=== PATIENT | female | born 1955 | race Caucasian/White ===

== ENCOUNTER 2021-01-11 20:00 | Outpatient (CLI) | payer MEDICARE, SELFPAY | END 2021-01-11 20:01 | disposition home or self-care (01) | LOC: SLEEP 01-12 08:27 | PROVIDERS: Family Provider Nurse Practitioner Family; Visit Provider Nurse Practitioner Family | DX: G47.10 Hypersomnia, unspecified (principal); R06.83 Snoring; R53.83 Other fatigue; G47.33 Obstructive sleep apnea (adult) (pediatric) | CPT/HCPCS: 95810 ==

== ENCOUNTER 2021-01-15 12:45 | Outpatient (CLI) | payer MEDICARE, SELFPAY ==
--- NOTE | 2021-01-15 13:01 | MM_ITS ---
WS: [id number] BILATERAL DIGITAL SCREENING MAMMOGRAPHY WITH CAD CLINICAL INFORMATION: SCREENING HISTORY: Screening mammogram. No current complaints. COMPARISON: None. TECHNIQUE: Bilateral CC and MLO views. FINDINGS: Scattered fibroglandular densities bilaterally. Dense breast tissue upper outer breasts bilaterally. No suspicious focal mass, asymmetry, calcifications, or architectural distortion. No evidence of heidi gnancy. MM/[place] [address] IMPRESSION: BI-RADS: 2-Benign FOLLOW UP: 1 Year Follow-up Recommend return to annual screening mammography.
== END 2021-01-15 12:46 | disposition home or self-care (01) ==
LOC: RADSHAW 12:48
PROVIDERS: Family Provider Nurse Practitioner Family; PCP Nurse Practitioner Family; Visit Provider Nurse Practitioner Family
DX: Z12.31 Encounter for screening mammogram for malignant neoplasm of breast (principal)
CPT/HCPCS: 77067

== ENCOUNTER → 2021-01-21 11:56 | Outpatient (BNVA) | payer MEDICARE, SELFPAY | PROVIDERS: Family Provider Nurse Practitioner Family; PCP Nurse Practitioner Family; Visit Provider Surgery | DX: Z12.11 Encounter for screening for malignant neoplasm of colon (principal); Z20.822 Contact with and (suspected) exposure to COVID-19 | CPT/HCPCS: 87635 ==

== ENCOUNTER 2021-01-25 06:30 | Day surgery (SDC) | payer MEDICARE, SELFPAY ==
[2021-01-21 10:18] VITALS: BMI 25.8
[2021-01-25 06:53] VITALS: BP 147/79; PULSE 72; RESP 16; TEMP 36.2; O2SAT 94
[2021-01-25] MEDS: sodium chloride 0.9% 1,000 ML 30 ML IV (06:58)
--- NOTE | 2021-01-25 07:07 | W.PM.OPSUD ---
Surgery/Procedure H&P Update DATE OF PROCEDURE: January 25, 2021 DATE H&P PERFORMED: 01/15/21 H&P UPDATE INFORMATION: I have reviewed H&P completed within last 30 days, I have examined patient prior to procedure and No changes to prior documentation PREOP DIAGNOSIS: screening colonoscopy PLANNED PROCEDURE: Operation Date: 01/25/21 07:30 Proposed Procedures p Colonoscopy 16041 Z12.11(Not Applicable) - Gaurav Danielson MD
--- NOTE | 2021-01-25 07:09 | ANES.PREANE2 ---
Pre-Anesthetic Assessment Pre-Anesthetic Assessment: Height/Weight: Height 1.68 m Weight 72.575 kg Temp Pulse Resp BP Pulse Ox 97.2 F L 72 16 147/79 94 01/25/21 06:53 01/25/21 06:53 01/25/21 06:53 01/25/21 06:53 01/25/21 06:53 Preop Diagnosis: screening colonoscopy Proposed Procedure: Operation Date: 01/25/21 07:30 Proposed Procedures p Colonoscopy 64279 Z12.11(Not Applicable) - Gaurav Danielson MD Last intake: Intake Last Liquid Date 01/24/21 Last Liquid Time 23:00 Last Solid Date 01/23/21 Last Solid Time 17:00 Social: Social History: Tobacco and No alcohol Packs per day: 1/2 Exam: Pre-Anes Outpt Exam: alert and oriented x 3 Airway: MP: 4 History/ROS: No significant history except as noted Pulmonary: Pulmonary: COPD and Sleep apnea CV/HEM: CV/HEM: None reported : : None reported Hepatic: Hepatic: None reported GI: GI: GERD and Hiatus hernia Metabolic: Metabolic: Hyperlipidemia Musc/skel: Musc/skel: OA/DJD and RA Neuropsych: Neuropsych: None reported Anesthetic Plan: ASA status: 2 Anesthesia: MAC Risk of > 500 ml blood loss (7ml/kg in children): No Meds/Allergies Current Medications: Current Medications Generic Name Dose Route Start Last Admin Trade Name Freq PRN Reason Stop Dose Admin Sodium Chloride 1,000 mls @ 30 ml s/hr 01/25/21 06:45 01/25/21 06:58 Sodium Chloride 0.9% IV 01/26/21 06:44 30 mls/hr .Q24H TAVARES Administration PFSH Anesthesia PFSH: Medical History (Updated 01/15/21 @ 18:05 by Gaurav Danielson MD) COPD (chronic obstructive pulmonary disease) Hiatal hernia Surgical History (Updated 01/15/21 @ 10:45 by Gaurav Danielson MD) History of cholecystectomy 1999 History of colonoscopy 1997 History of esophagogastroduodenoscopy (EGD) 1997 History of tonsillectomy Family History (Updated 01/15/21 @ 10:15 by Kim Faria) Mother Cancer CAD (coronary artery disease) Other Diabetes Social History (Updated 01/15/21 @ 10:15 by Kim Faria) Smoking and tobacco status: current every day smoker Second hand smoke exposure: No Alcohol intake: never Lives independently: Yes Household members: spouse Data Anesthesia Cardiac Studies: No Data to Display
[2021-01-25 08:05] VITALS: BP 132/68; PULSE 59; RESP 12; TEMP 36.1; O2SAT 99
== END 2021-01-25 08:30 | disposition home or self-care (01) ==
PROVIDERS: PCP Nurse Practitioner Family; Visit Provider Surgery
PROC: 0DJD8ZZ Inspection of Lower Intestinal Tract, Via Natural or Artificial Opening Endoscopic (ICD-10-PCS; CPT 45378; principal; 2021-01-25 07:30)
DX: Z12.11 Encounter for screening for malignant neoplasm of colon (principal); Z80.0 Family history of malignant neoplasm of digestive organs; K57.30 Diverticulosis of large intestine without perforation or abscess without bleeding; K64.8 Other hemorrhoids; J44.9 Chronic obstructive pulmonary disease, unspecified; F17.210 Nicotine dependence, cigarettes, uncomplicated; Z82.49 Family history of ischemic heart disease and other diseases of the circulatory system; E78.5 Hyperlipidemia, unspecified; M19.90 Unspecified osteoarthritis, unspecified site
CPT/HCPCS: 96360; 96361; G0121; J2704; J7030

== ENCOUNTER 2021-02-17 20:00 | Outpatient (CLI) | payer MEDICARE, SELFPAY | END 2021-02-17 20:01 | disposition home or self-care (01) | LOC: SLEEP 02-18 09:59 | PROVIDERS: PCP Nurse Practitioner Family; Visit Provider Nurse Practitioner Family | DX: G47.33 Obstructive sleep apnea (adult) (pediatric) (principal) | CPT/HCPCS: 95811 ==

== ENCOUNTER → 2022-01-18 15:00 | Outpatient (BNVA) | payer MEDICARE, SELFPAY | PROVIDERS: PCP Nurse Practitioner Family; Visit Provider Obstetrics & Gynecology | DX: N81.10 Cystocele, unspecified (principal); Z12.4 Encounter for screening for malignant neoplasm of cervix | CPT/HCPCS: 81000; 87624 ==

== ENCOUNTER 2022-02-18 12:44 | Outpatient (CLI) | payer MEDICARE, SELFPAY ==
--- NOTE | 2022-02-18 12:54 | CT_ITS ---
WS: [id number] LDCT LUNG CANCER SCREENING TECHNIQUE: Noncontrast CT of the chest with coronal and sagittal reformatted images. CLINICAL INFORMATION: NICOTINE DEPENDENCE,CIGARETTES COMPARISON: None. DLP: 76.62 mGy.cm DIvol: Mean CTDIvol: 1.60 (mGy) All CT scans at [facility] use at least one of these dose optimization techniques: automat ed exposure control; mA and/or kV adjustment per patient size (includes targeted exams where dose is matched to clinical indication); or iterative reconstruction. FINDINGS: Tiny 2 mm noncalcified nodule LEFT lower lobe. No acute pulmonary infiltrates. No focal pneumonia or pleural fluid. Mild aortic calcification. No mediastinal or hilar lymphadenopathy. Normal GE junction. Adrenal glands appear normal where visualized. Mild chronic emphysematous changes . CT/CT lung screening 34675 IMPRESSION: LUNG-RADS: 2-Benign Appearance or Behavior FOLLOW UP: 12 Month: Continue annual screening with LDCT
== END 2022-02-18 12:45 | disposition home or self-care (01) ==
LOC: RAD 12:46
PROVIDERS: PCP Nurse Practitioner Family; Visit Provider Nurse Practitioner Family
DX: Z12.2 Encounter for screening for malignant neoplasm of respiratory organs (principal); F17.210 Nicotine dependence, cigarettes, uncomplicated; R91.1 Solitary pulmonary nodule
CPT/HCPCS: 71271

== ENCOUNTER 2022-06-29 19:15 | Observation (INO) | payer MEDICARE, SELFPAY ==
[2022-06-27 11:46] LABS: Blood Urine 2+ (Negative); Glucose Urine UA Norm (Normal); Ketones Urine Negative (Negative); Protein Urine Neg (Negative); Urine Appearance Clear (CLEAR); Urine Color Straw (Yellow); pH Urine 6 (5-7)
[2022-06-27 11:47] LABS: Add Urine Culture? No; Add Urine Microscopic? YES; Bacteria Urine TRACE /hpf; Bilirubin Urine Neg (Negative); Leukocyte Esterase Urine Negative (Negative); Nitrate Urine Negative (Negative); RBC Urine 0-4 /hpf (0-2); Squamous Epithelial Cell Urine 0-4 /hpf (0-5); Urobilinogen Urine Norm (Negative); WBC Urine 0-4 /hpf (0-5)
[2022-06-27 11:49] VITALS: BMI 25.2
[2022-06-27 11:59] LABS: Basophils # 0.1 10^3/uL (0.0-0.1); Basophils % 0.8 %; Eosinophils # 0.3 10^3/uL (0.0-0.8); Eosinophils % 3.9 %; Hematocrit 46.8 % (37.0-47.0); Hemoglobin 15.3 g/dL (11.5-15.3); Lymphocytes # 1.9 10^3/uL (0.8-4.8); Lymphocytes % 29.8 %; Mean Corpuscular HGB Conc 32.7 g/dL (30.0-36.0); Mean Corpuscular Hemoglobin 31.4 pg (28.0-34.0); Mean Corpuscular Volume 96.1 fl (81-99); Mean Platelet Volume 9.2 fL (7.4-10.4); Monocytes # 0.3 10^3/uL (0.2-0.9); Monocytes % 5.4 %; Neutrophils # 3.81 10^3/uL (1.8-7.7); Neutrophils % 59.9 %; Nucleated Red Blood Cells % 0 %; Platelet Count 245 10^3/cmm (130-400); Red Blood Count 4.87 10^6/uL (4.1-5.3); Red Cell Distribution Width 12.9 % (12.1-15.1); White Blood Count 6.4 10^3/uL (4.0-10.0)
[2022-06-27 12:19] LABS: Alanine Aminotransferase 19 U/L (0-33); Albumin Level 4.3 g/dL (3.5-5.2); Alkaline Phosphatase 96 U/L (35-105); Anion Gap 14.5 (5-19); Aspartate Amino Transferase 18 U/L (0-32); Blood Urea Nitrogen 13 mg/dL (8-23); Calcium 9.1 mg/dL (8.5-10.5); Carbon Dioxide 27 mmol/L (22-29); Chloride 104 mmol/L (98-107); Glomerular Filtration Rate 123.1 mL/min (90-130); Glucose 86 mg/dL (65-115); Osmolality Calculated 291 mOsm/kg (285-295); Potassium 4.5 mmol/L (3.5-5.1); Sodium 141 mmol/L (136-145); Total Bilirubin 0.6 mg/dL (0.15-1.2); Total Protein 7.3 g/dL (6.6-8.7)
--- NOTE | 2022-06-27 16:19 | P.ANESASSM_ITS ---
Pre-Anesthetic Assessment Height/Weight: Height 1.68 m Weight 70.76 kg Preop Diagnosis: screening colonoscopy Operation Date: 06/29/22 11:05 Proposed Procedures p Anterior and posterior colporrhaphy 97280, single incision sling 39082,N81.10,N81.6(Not Applicable) - Peter Ewing MD s Posterior Repair Posterior Colporrhaphy(Not Applicable) - Peter Ewing MD s Sling Single Incision Sling(Not Applicable) - Peter Ewing MD Familial anesthetic complications: PONV Was Beta Olinda taken within 24 hours: N/A Was Clonidine taken within 24 hours: N/A Social Tobacco and No alcohol Exam alert, oriented x 3, clear to auscultation bilaterally and regular rate & rhythm Airway Submandibular: within normal limits Cervical ROM: within normal limits Mallampati: Class I Dentition: caps History/ROS No significant complaints Pulmonary Chronic Obstructive Pulmonary Disease and Sleep Apnea (BiPAP) CV/HEM METS > 4 Mixed incontinence Hepatic None reported GI Gastroesophageal Reflux Disease and Hiatal Hernia Metabolic None reported Musc/skel None reported Neuropsych None reported Anesthetic Plan ASA status: 3 Anesthesia: Anesthesia Evaluation and General Other: We discussed risk and benefits of general anesthesia including PONV, sore throat (sometimes severe), corneal abrasion, positioning and peripheral nerve injuries, life threatening allergic reaction, post operative ICU admission requiring prolonged intubation, stroke, heart attack, , and rare incidences of recall. Patient consents to proceed with general anesthesia. Risk of > 500 ml blood loss (7ml/kg in children): No Medications/Allergies Home Medications Medication Instructions Recorded Confirmed Last Taken Type budesonide-formoterol HFA 80 2 puff inhalation BID 01/15/21 06/27/22 01/25/21 05:00 History mcg-4.5 mcg/actuation aerosol inhaler (Symbicort) albuterol sulfate 90 mcg/actuation 1 puff inhalation BID 01/21/21 06/27/22 01/23/21 History aerosol inhaler ibuprofen 800 mg tablet 800 mg PO Q8H PRN Pain, Moderate 01/18/22 06/27/22 Unknown History Allergies Allergy/AdvReac Type Severity Reaction Status Date / Time No Known Allergies Allergy Verified 06/27/22 11:25 [facility] Anesthesia Medical History COPD (chronic obstructive pulmonary disease) Hiatal hernia Surgical History History of cholecystectomy 1999 History of colonoscopy (01/25/21) 2020: diverticulosis, repeat in 5 years 1997 History of esophagogastroduodenoscopy (EGD) 1997 History of tonsillectomy Family History Mother CAD (coronary artery disease) Clotting disorder Diabetes Hyperlipidemia Heart disease Colon cancer, Onset Age: 52 Father Hypertension Other Chronic kidney disease (CKD) Denies family history of Ovarian cancer Breast cancer Anesthesia complication Bleeding disorder Uterine cancer Thyroid condition Stroke Social History Smoking and tobacco status: current every day smoker Alcohol intake: never Lives independently: Yes Household members: spouse Data Anesthesia : 06/27/22 11:40 06/27/22 11:40 Short CBC 06/27/22 Range/Units 11:40 WBC 6.4 (4.0-10.0) 10^3/uL Hgb 15.3 (11.5-15.3) g/dL Hct 46.8 (37.0-47.0) % MCV 96.1 (81-99) fl Plt Count 245 (130-400) 10^3/cmm Neut % (Auto) 59.9 % Neut # (Auto) 3.81 (1.8-7.7) 10^3/uL BMP 06/27/22 11:40 Sodium 141 Potassium 4.5 Chloride 104 Carbon Dioxide 27 BUN 13 Creatinine 0.5 Glucose 86 Calcium 9.1 Liver Function 06/27/22 Range/Units 11:40 Total Bilirubin 0.6 (0.15-1.2) mg/dL AST 18 (0-32) U/L ALT 19 (0-33) U/L Alkaline Phosphatase 96 (35-105) U/L Albumin 4.3 (3.5-5.2) g/dL Urine 06/27/22 Range/Units 11:19 Urine Color Straw (Yellow) Urine Appearance Clear (CLEAR) Urine pH 6 (5-7) Ur Specific Clemons 1.010 (1.005-1.030) Urine Protein Neg (Negative) Urine Glucose (UA) Norm (Normal) Urine Ketones Negative (Negative) Urine Nitrate Negative (Negative) Urine Bilirubin Neg (Negative) Ur Leukocyte Esterase Negative (Negative) Urine RBC 0-4 H (0-2) /hpf Urine WBC 0-4 H (0-5) /hpf Blood Bank 06/27/22 11:40 Blood Type A Positive Rho(D) Type Positive Antibody Screen Negative Cardiac Studies: No Data to Display
[2022-06-29] VITALS (14 sets, daily range): BP systolic 98–143; BP diastolic 50–84; PULSE 63–76; RESP 12–29; TEMP 36.6–37; O2SAT 93–99
--- NOTE | 2022-06-29 12:42 | ECG_ITS ---
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 Measurements Intervals Sheldon Rate: 65 P: 73 WV: 175 QRS: 97 QRSD: 101 T: 72 QT: 383 QTc: 399 Interpretive Statements SINUS RHYTHM BORDERLINE RIGHT AXIS DEVIATION [QRS AXIS > 90] INCOMPLETE RIGHT BUNDLE BRANCH BLOCK [90+ ms QRS DURATION, TERMINAL R IN V1/V2, 40+ ms S IN I/aVL/V4/V5/V6] No previous ECG available for comparison Electronically Signed On 06-30-2022 10:43:14 CDT by Santiago Pierre M.D. [id number]
[2022-06-29] MEDS: sodium chloride 0.9% 500 ML IV (12:59)
[2022-06-29] MEDS: enoxaparin 30 mg/0.3 mL Syringe SUBCUT (13:00)
[2022-06-29] MEDS: sodium chloride 0.9% 1,000 ML 30 ML IV (13:00)
[2022-06-29] MEDS: scopolamine 1.5 Patch 1 PATCH TRANSDERMA (13:01)
--- NOTE | 2022-06-29 13:09 | P.ANESUD_ITS ---
Pre-Anesthetic Update Pre-Anesthetic Assessment: Date of Surgery/Procedure: 06/29/22 Preop Radha gnosis: Cystocele, rectocele Proposed Procedure: Operation Date: 06/29/22 14:25 Proposed Procedures p Anterior and posterior colporrhaphy 21023, single incision sling 29708,N81.10,N81.6(Not Applicable) - Peter Ewing MD s Posterior Repair Posterior Colporrhaphy(Not Applicable) - Peter Ewing MD s Sling Single Incision Sling(Not Applicable) - Peter Ewing MD Any changes to Pre-Anesthetic Assessment?: No Last Intake: Intake Last Liquid Date 06/28/22 Last Liquid Time 22:00 Last Solid Date 06/28/22 Last Solid Time 22:00 Vitals: Temperature 98.6 F 06/29/22 12:44 Temperature Source Temporal Artery S can 06/29/22 12:44 Pulse Rate 64 06/29/22 12:44 Respiratory Rate 16 06/29/22 12:44 Blood Pressure 143/84 06/29/22 12:44 Blood Pressure Dee n 103 06/29/22 12:44 Pulse Oximetry 94 06/29/22 12:44 Oxygen Delivery Me thod 06/29/22 13:02 Exam: Pre-Anes Outpt Exam: alert, oriented x 3, clear to auscultation bilaterally and regular rate & rhythm Cardiac Studies: No Data to Display
--- NOTE | 2022-06-29 13:47 | W.PM.OPSUD ---
Surgery/Procedure H&P Update DATE OF PROCEDURE: June 29, 2022 DATE H&P PERFORMED: 06/27/22 H&P UPDATE INFORMATION: I have reviewed H&P completed within last 30 days, I have examined patient prior to procedure and No changes to prior documentation PREOP DIAGNOSIS: Cystocele, rectocele PLANNED PROCEDURE: Operation Date: 06/29/22 14:25 Proposed Procedures p Anterior and posterior colporrhaphy 27166, single incision sling 18948,N81.10,N81.6(Not Applicable) - Peter Ewing MD s Posterior Repair Posterior Colporrhaphy(Not Applicable) - Peter Ewing MD s Sling Single Incision Sling(Not Applicable) - Peter Ewing MD
[2022-06-29] MEDS: ceFAZolin 2,000 MG in sodium chloride 0.9% (plus) 50 ML 100 MG IV (16:18)
--- NOTE | 2022-06-29 18:13 | PM.OP ---
Operative Report Date of procedure: June 29, 2022 Pre-op diagnosis: Preop Diagnosis Cystocele, rectocele Post-op diagnosis: Same as above Procedure done: Anterior colporrhaphy augmented with allograft. Single incision mid urethral sling. Posterior colporrhaphy. Cystoscopy. Surgeon: Peter Ewing MD Estimated blood loss (mL): 10 IV fluids (mL): 600 Urine output (mL): 300 Procedure: After obtaining informed consent, the patient was taken to the operating room and placed in the supine position, given general anesthesia, and prepped and draped in sterile fashion. The abdomen, vulva and vagina were prepped and draped in a sterile manner. A time out procedure was performed. The anterior vaginal mucosa beneath the midurethra was infiltrated with 0.5% Marcaine with epinephrine. A vertical midline incision was made beneath the midurethra, nearly 1.5 cm length. Careful submucosal dissection was performed bilaterally up to the interior portion of the inferior pubic ramus. The insertion of adductor longus tendon on the patient?s pubic ramus was identified as reference land addy. Palpated the notch along the internal edge of ischiopubic ramus where the adductor longus tendon and the inferior pubic ramus meet. The Altis single incision sling (SIS) was selected. Then the needle of the SIS inserted aiming at the location of this notch. One of the integrated self-fixating tips place onto the needle by sliding it over the end of the needle. The needle/sling assembly was inserted toward the location of identified reference notch making sure that the flat of the handle is perpendicular to the desired path. The needle was tracked along the posterior surface of the ischiopubic ramus until the midline addy on the mesh is approximately at the midline position under the urethra. The needle was removed and the same was repeated on the contralateral side until the appropriate sling tension under the urethra was achieved ensuring that the mesh lays flat. The needle was removed and vaginal incision was closed in a running interlocking fashion with 2-0 Vicryl. The vaginal mucosa was then injected in the midline with normal saline. The vaginal mucosa was scored in the midline with the Bovie approximately 1 cm medial to the urethral meatus to 1 cm distal to the cervix. This vaginal mucosa was then undermined and then incised in the midline with the Metzenbaum scissors. The lateral aspects of the vaginal mucosa were then grasped with the Allis clamps and the vaginal mucosa was then dissected off the underlying fascia with the Metzenbaum scissors. Again, there was noted to be quite a bit of oozing at the incision, which was controlled with cautery. After adequate dissection was performed, bilaterally. The Coloplast dermal allograft was modified at time of application to fit spacea, 3 x 3 cm piece . The allograft was placed in front of cystocele ready to be implanted facing the vagina mucosa. Suture is placed at distal end of graft and placed towards vaginal cuff. Final suture is placed on proximal portion of the graft to complete the placement overlying the bladder. Then Interrupted vertical mattress sutures of 0 Vicryl were used to elevate the cystocele superiorly. The excessive vaginal mucosa was then trimmed with the Metzenbaum scissors and the vaginal mucosa was then reapproximated in the running interlocking fashion with 2-0 Vicryl. A dilute 2% lidocaine with epinephrine solution was infiltrated under the posterior vaginal mucosa midline and into the perineal body. A transverse incision was cut in the perineum. The posterior vaginal wall was opened vertically and midline up to the apex of the rectocele. The cut edges were held and splayed laterally with a series of Allis clamps. The open vaginal mucosa was then dissected laterally with a combination of sharp and blunt dissection, exposing the perirectal fascia. The perirectal fascia was then reapproximated with interrupted #2-0 Vicryl sutures to draw the lateral folds together and tuck the rectocele back. Deep interrupted sutures of #0 Vicryl were used to reapproximate the fibers of the levator ani muscles. The excess vaginal mucosa was trimmed. The posterior vaginal wall was closed with a running locked #0 Vicryl to the hymenal tags. The superficial perineal muscles were closed with running unlocked #0 Vicryl and the perineal skin was closed with running subcuticular #2-0 Vicryl. Then the Sue catheter was removed and cystoscope was inserted. The bladder was filled with sterile water. Complete evaluation of the bladder mucosa was performed noting no lacerations, dimpling, tears, bleeding of the mucosa or muscular layers. Both ureteral orifices were identified. Prompt excretion of urine from both ureteral orifices was noted. Cystoscope was withdrawn. The Sue catheter was replaced. Excellent hemostasis was obtained. A vaginal pack is placed overnight as postoperative support for the vaginal tissues after graft placement and closure of vaginal incisions. Sponge, lap, needle, and instrument counts were correct times three. The patient was taken to the recovery room, awake and in stable condition.
--- NOTE | 2022-06-29 18:38 | SUR.PHASEI ---
182 PT TO PACU 5 PT SLEEPY WITH ORAL AIRWAY IN PLACE, IV TO RT WRIST WITH NS 300ML UP AT KVO RATE, PER GRAVITY , PT ID AND BLOOD BAND BRACELET TO LT WRIST, PT ID'D WITH 2 IDENTIFIERS. PT ABDOMEN IS SOFT VAGINAL PACKING IN PLACE ,NO BLEEDING NOTED MEZA TO DD WITH LT BLUE URINE NOTED TO TUBING AND BAG, BILAT SCDS ON AND WORKING. MONITOR IS SR WITH NO ECTOPY, NO DISTRESS NOTED 1836 PT AWAKES TO VOICE, ORAL AIRWAY OUT, PT REPOSITIONS SELF TO RT SIDE, NO BLEEDING NOTED, VSS.
--- NOTE | 2022-06-29 18:52 | SUR.PHASEI ---
PT RESTING QUIETLY, BLUE URINE TO TUBING AND BAG, STATLOCK TO RT INNER THIGH, NO URETHRAL TENSION NOTED PT SLEEPS IF NOT DISTURBED PT VERBALLY DENIES PAIN AND NAUSEA AT THIS TIME, PT SATS DOWN TO 90% AT TIMES PT PLACE ON 2LNC
--- NOTE | 2022-06-29 19:31 | SUR.PHASEI ---
PT TO OB 9 PER CART, PT AWAKE ALERT MOVES SELF TO BED , HANDOFF TO CARDIOLOGY SPECIALIST RN AT BEDSIDE, NO BLEEDING NOTED VAGINAL PACKING UNCHANGED AND ABDOMEN SOFT, IV PATENT PT POSITIONS SELF ON LT SIDE, NO C/O OR PROBLEMS VOICED , PT FAMILY UPDATED EARLER AND WILL MEET PT IN OB AREA.
--- NOTE | 2022-06-29 20:35 | ANE.PACU2 ---
Inpatient post-anesthesia follow up: Airway intact: Yes Vital signs: Temperature 98.1 F Pulse Rate 71 Respiratory Rate 16 Blood Pressure 123/84 Pulse Oximetry 95 Oxygen Delivery Me thod Nasal Cannula Oxygen Flow Rate 2 Fraction of Inspir ed Oxygen Hydration adequate: Yes Nausea and vomiting: No Pain level: 1 Mental status: Baseline
[2022-06-30 00:20] VITALS: BP 110/66; PULSE 61; O2SAT 95
[2022-06-30] MEDS: ketorolac 30 mg/mL INJ IVP (00:46)
[2022-06-30 02:20] VITALS: BP 103/60; PULSE 58; O2SAT 94
[2022-06-30 05:39] LABS: Hemoglobin 13.1 g/dL (11.5-15.3); Mean Corpuscular Hemoglobin 31.6 pg (28.0-34.0); Mean Platelet Volume 9.2 fL (7.4-10.4); Platelet Count 210 10^3/cmm (130-400); Red Blood Count 4.14 10^6/uL (4.1-5.3); Red Cell Distribution Width 12.8 % (12.1-15.1)
[2022-06-30 05:43] VITALS: BP 117/67; PULSE 66; RESP 15; O2SAT 95
[2022-06-30] MEDS: docusate sodium 100 mg Capsule PO (09:42)
[2022-06-30] MEDS: ibuprofen 800 mg tablet PO (09:43)
--- NOTE | 2022-06-30 09:47 | PM.OBGYDC ---
Discharge Providers COURT CRIER Date of Admission: 06/29/22 19:15 Date of Discharge: 06/30/22 Attending Provider at Admission: Peter Ewing MD Attending Provider at Discharge: Peter Ewing MD Primary COURT CRIER: Peter Ewnig MD Primary Care Provider: Melissa Rodney Reason for Visit Reason for Visit: rectocele and cystocele Hospital Course Hospital Course Mrs. Bell 67-year-old female admitted for planned anterior colporrhaphy and single incision mid urethral sling and posterior colporrhaphy. Anterior colporrhaphy augmented with allograft, single incision mid urethral sling and posterior colporrhaphy were performed without complications. Overnight observation was uneventful. Urine output adequate. She is afebrile and hemodynamically stable postoperative day 1. Tolerating diet well. Ambulating without difficulty. Postop PVR within normal limits. Physical Exam Narrative: GA: Alert and oriented ?3. HEENT: WNL. Heart: Regular rate and rhythm. Lungs: Clear to auscultation bilaterally. Abdomen: Bowel sounds present, nontender. 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 Extremities: No edema, no cyanosis, no calves pain. Urinary Catheter Management: Sue: Cath Placed During This Visit: yes, but has since been removed by the nurse Reason for Continuing Indwelling Catheter: Decision to DC Catheter Urinary Catheter Date of Insertion: 06/29/22 Urinary Catheter Time of Insertion: 16:45 Date Urinary Catheter Removed: 06/30/22 Time Urinary Catheter Discontinued: 05:20 History History History 3 Term 3 0 Miscarriages/Ectopic 0 Living Children 3 Discharge Data Studies Completed and Pending Pending at discharge Category Date Time Status ES surgery / GI images Routine Exams 06/29/22 15:57 Taken Laboratory Results WBC 8.0 10^3/uL (4.0-10.0) 06/30/22 05:20 RBC 4.14 10^6/uL (4.1-5.3) 06/30/22 05:20 Hgb 13.1 g/dL (11.5-15.3) 06/30/22 05:20 Hct 41.0 % (37.0-47.0) 06/30/22 05:20 MCV 99.0 fl (81-99) 06/30/22 05:20 MCH 31.6 pg (28.0-34.0) 06/30/22 05:20 MCHC 32.0 g/dL (30.0-36.0) 06/30/22 05:20 RDW 12.8 % (12.1-15.1) 06/30/22 05:20 Plt Count 210 10^3/cmm (130-400) 06/30/22 05:20 MPV 9.2 fL (7.4-10.4) 06/30/22 05:20 Neut % (Auto) 59.9 % 06/27/22 11:40 Lymph % (Auto) 29.8 % 06/27/22 11:40 [place] % (Auto) 5.4 % 06/27/22 11:40 Eos % (Auto) 3.9 % 06/27/22 11:40 Baso % (Auto) 0.8 % 06/27/22 11:40 Neut # (Auto) 3.81 10^3/uL (1.8-7.7) 06/27/22 11:40 Lymph # (Auto) 1.9 10^3/uL (0.8-4.8) 06/27/22 11:40 [place] # (Auto) 0.3 10^3/uL (0.2-0.9) 06/27/22 11:40 Eos # (Auto) 0.3 10^3/uL (0.0-0.8) 06/27/22 11:40 Baso # (Auto) 0.1 10^3/uL (0.0-0.1) 06/27/22 11:40 Nucleated RBC % (auto) 0 % 06/27/22 11:40 Nucleated RBCs # 0.0 /100WBC 06/27/22 11:40 Sodium 141 mmol/L (136-145) 06/27/22 11:40 Potassium 4.5 mmol/L (3.5-5.1) 06/27/22 11:40 Chloride 104 mmol/L (98-107) 06/27/22 11:40 Carbon Dioxide 27 mmol/L (22-29) 06/27/22 11:40 Anion Gap 14.5 (5-19) 06/27/22 11:40 BUN 13 mg/dL (8-23) 06/27/22 11:40 Creatinine 0.5 mg/dL (0.5-0.9) 06/27/22 11:40 GFR Calculation 123.1 mL/min (90-130) 06/27/22 11:40 Glucose 86 mg/dL (65-115) 06/27/22 11:40 Calculated Osmolality 291 mOsm/kg (285-295) 06/27/22 11:40 Calcium 9.1 mg/dL (8.5-10.5) 06/27/22 11:40 Total Bilirubin 0.6 mg/dL (0.15-1.2) 06/27/22 11:40 AST 18 U/L (0-32) 06/27/22 11:40 ALT 19 U/L (0-33) 06/27/22 11:40 Alkaline Phosphatase 96 U/L (35-105) 06/27/22 11:40 Total Protein 7.3 g/dL (6.6-8.7) 06/27/22 11:40 Albumin 4.3 g/dL (3.5-5.2) 06/27/22 11:40 Globulin 3.0 g/dL (1.3-4.6) 06/27/22 11:40 Urine Color Straw (Yellow) 06/27/22 11:19 Urine Appearance Clear (CLEAR) 06/27/22 11:19 Urine pH 6 (5-7) 06/27/22 11:19 Ur Specific [place] 1.010 (1.005-1.030) 06/27/22 11:19 Urine Protein Neg (Negative) 06/27/22 11:19 Urine Glucose (UA) Norm (Normal) 06/27/22 11:19 Urine Ketones Negative (Negative) 06/27/22 11:19 Urine Blood 2+ (Negative) H 06/27/22 11:19 Urine Nitrate Negative (Negative) 06/27/22 11:19 Urine Bilirubin Neg (Negative) 06/27/22 11:19 Urine Urobilinogen Norm mg/dL (Negative) 06/27/22 11:19 Ur Leukocyte Esterase Negative (Negative) 06/27/22 11:19 Urine RBC 0-4 /hpf (0-2) H 06/27/22 11:19 Urine WBC 0-4 /hpf (0-5) H 06/27/22 11:19 Ur Squamous Epith Cells 0-4 /hpf (0-5) H 06/27/22 11:19 Amorphous Sediment Not Reportable 06/27/22 11:19 Urine Bacteria Trace /hpf (NONE) 06/27/22 11:19 Blood Type A Positive 06/27/22 11:40 Rho(D) Type Positive 06/27/22 11:40 Antibody Screen Negative 06/27/22 11:40 Vitals Last Vital Signs Temp 98.0 F 06/29/22 20:20 Pulse 66 06/30/22 05:43 Resp 15 06/30/22 05:43 BP 117/67 06/30/22 05:43 Pulse Ox 95 06/30/22 05:43 O2 Del Method 06/30/22 05:43 O2 Flow Rate 2 06/30/22 02:20 Discharge Plan Discharge Patient Disposition: Home Condition: Stable Prescriptions: New hydrocodone-acetaminophen 5-325 mg tablet 1 tab PO Q4H PRN (Reason: pain) Qty: 20 0RF ibuprofen 800 mg tablet 800 mg PO TID PRN (Reason: pain) Qty: 60 0RF acetaminophen 325 mg capsule 325 mg PO Q4H PRN (Reason: fever or pain) Qty: 60 0RF Continued budesonide-formoterol [Symbicort] 80-4.5 mcg/actuation HFA aerosol inhaler 2 puff inhalation BID ibuprofen 800 mg tablet 800 mg PO Q8H PRN (Reason: Pain, Moderate) albuterol sulfate 90 mcg/actuation Hfa Aerosol Inhaler 1 puff INHALATION BID Discharge Orders: Discharge Order (Routine); Ordered 06/30/22 Ordered By: Peter Ewing Referrals: Peter Ewing MD [Physician] - 2 weeks Discharge Diet: Advance as tolerated and Soft Mechanical Discharge Activity: Limit activity as instructed Patient Instructions: Opioid Safety, Anterior Vaginal Repair (GEN), Posterior Vaginal Repair (GEN), Bladder Sling for Women (GEN) Activity Restrictions/Additional Instructions: 1. Please call [facility] on next working day to make your post-operative appointment in 2 weeks. 2. Please stay home until you come back to the clinic on first post-operative check up. 3. Please follow instructions on your medications CAREFULLY. 4. If you have abdominal incision, do not cover it unless dressing is necessary because of drainage. OK to shower, but avoid bath. Leave steri-strips until they fall off. If they are still on one week after surgery, you may remove them. 5. If you had vaginal surgery or vaginal repair, Dr. Ewing may instruct you to take SITZ bath. 6. Yellow, blood tinged odorous vaginal discharge is usually normal after hysterectomy or vaginal surgeries. 7. No sexual intercourse, tampons, or douches until you are completely released from the post-operative care. 8. Avoid constipation by eating right and maybe using some Metamucil or Milk of Magnesia. 9. All prescription refills are given during the working hours. Please do no wait till it runs out. Call the clinic at [phone] before your medication runs out. The clinic will get in touch with your doctor to prescribe medications if necessary. 10. Please remain within 40 mile radius from our hospital because emergencies do happen now and then during the post-operative period. 11. If you have stairs at home, take one step at a time slowly and minimize the number of trips. It helps to stay in one floor for the next few days. No lifting except what you can lift by one hand until you are released from the post-operative care. 12. Driving is discouraged until you are well healed. It may be 3-4 weeks before you feel strong enough to drive. You should be able to turn and look through the rear window without pain and you should be able to push the brake pedal very hard without pain before you drive. No fast rules, but SAFETY should be your primary concern. DO NOT drive if you are on sedating medications such as narcotics. 13. Call the clinic (during working hours) to make urgent appointment or go to the Emergency room, if any of the following occurs: i. Vaginal bleeding becomes heavy, more than a period. ii. Incision becomes red and sore, or drains pus. iii. Your temperature is over 100.4 or you have chill. iv. IV site becomes red and swollen (a little ``knot?? is usually OK) v. Persistent nausea and vomiting vi. Persistent constipation or diarrhea vii. Rash or allergic reaction to medications. Discharge Attestations COURT CRIER Time Spent in Discharge Care*: greater than 30 min Coding Level of Care Code Acute Senior Lead Software Engineer for Angel Morillo
[2022-06-30 10:00] VITALS: BP 110/69; PULSE 65; RESP 16; TEMP 36.8; O2SAT 96
[2022-06-30 10:11] VITALS: BP 110/69; PULSE 65; RESP 16; TEMP 36.8; O2SAT 96
== END 2022-06-30 10:12 | disposition home or self-care (01) ==
LOC: OBGYN 06-30 02:20
PROVIDERS: Admitting Provider Obstetrics & Gynecology; PCP Nurse Practitioner Family; Visit Provider Obstetrics & Gynecology
PROC: 0JQC0ZZ Repair Pelvic Region Subcutaneous Tissue and Fascia, Open Approach (ICD-10-PCS; CPT 57240; principal; 2022-06-29 14:25)
PROC: (CPT 57250; 2022-06-29 14:25)
PROC: (CPT 57288; 2022-06-29 14:25)
DX: N81.10 Cystocele, unspecified (principal); J44.9 Chronic obstructive pulmonary disease, unspecified; G47.30 Sleep apnea, unspecified; K21.9 Gastro-esophageal reflux disease without esophagitis; F17.210 Nicotine dependence, cigarettes, uncomplicated
CPT/HCPCS: 57260; 57267; 57288; 36415; 51798; 80053; 81001; 85025; 85027; 86850; 86900; 93005; C1713; C1762; G0378; J1100; J1650; J1885; J2405; J2704; J3010; J3490; J7030; J7040; Q9968

== ENCOUNTER 2022-08-18 12:42 | Outpatient (CLI) | payer MEDICARE, SELFPAY ==
--- NOTE | 2022-08-18 13:10 | MM_ITS ---
WS: [id number] BILATERAL 3D TOMOSYNTHESIS DIGITAL SCREENING MAMMOGRAPHY WITH CAD CLINICAL INFORMATION: SCREENING HISTORY: Screening mammogram. No current complaints. COMPARISON: January 15, 2021 TECHNIQUE: Bilateral CC and MLO views. FINDINGS: Scattered fibroglandular densities bilaterally. No suspicious focal mass, asymmetry, calcifications, or architectural distortion. No evidence of malignancy. MM/[place] [id number] IMPRESSION: BI-RADS: 1-Negative FOLLOW UP: 1 Year Follow-up Recommend return to annual screening mammography.
== END 2022-08-18 12:43 | disposition home or self-care (01) ==
LOC: RAD 12:44
PROVIDERS: PCP Registered Nurse; Visit Provider Registered Nurse
DX: Z12.31 Encounter for screening mammogram for malignant neoplasm of breast (principal)
CPT/HCPCS: 77063; 77067

== ENCOUNTER 2023-06-27 10:27 | Observation (INO) | payer MEDICARE, SELFPAY ==
[2023-06-23 11:18] VITALS: BMI 25.0
--- NOTE | 2023-06-23 11:46 | ECG_ITS ---
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 Measurements Intervals [place] Rate: 72 P: 78 UT: 155 QRS: 88 QRSD: 102 T: 64 QT: 378 QTc: 415 Interpretive Statements SINUS RHYTHM WITH SINUS ARRHYTHMIA INDETERMINATE AXIS INCOMPLETE RIGHT BUNDLE BRANCH BLOCK [90+ ms QRS DURATION, TERMINAL R IN V1/V2, 40+ ms S IN I/aVL/V4/V5/V6] NONSPECIFIC T-WAVE ABNORMALITY Compared to ECG 06/29/2022 12:51:25 Indeterminate axis now present T-wave abnormality now present Electronically Signed On 06-23-2023 17:23:04 CDT by Erin Flores M.D. [id number]
--- NOTE | 2023-06-23 12:06 | P.ANESASSM_ITS ---
Pre-Anesthetic Assessment Height/Weight: Height 1.68 m Weight 70.307 kg Operation Date: 06/27/23 11:15 Proposed Procedures p Total vaginal hysterectomy, bilateral salpingo-oophorectomy 69144, posterior coplorrhaphy 70112, sacrospinous fixation 61809,N81.4(Not Applicable) - Peter Ewing MD s Salpingo-Oophorectomy (Vaginal)(Bilateral) - Peter Ewing MD s Posterior Repair Posterior Colporrhaphy(Not Applicable) - Peter Ewing MD s Sacrospinous Ligament Suspension Sacrospinous Fixation(Not Applicable) - Peter Ewing MD Familial anesthetic complications: PONV Social Tobacco and No alcohol Exam alert, oriented x 3, clear to auscultation bilaterally and regular rate & rhythm Airway Dentition: other (missing) Pulmonary Chronic Obstructive Pulmonary Disease Anesthetic Plan ASA status: 2 Anesthesia: General Risk of > 500 ml blood loss (7ml/kg in children): No Medications/Allergies Home Medications Medication Instructions Recorded Confirmed Last Taken Type budesonide-formoterol HFA 80 2 puff inhalation BID 01/15/21 06/23/23 06/23/23 History mcg-4.5 mcg/actuation aerosol inhaler (Symbicort) albuterol sulfate 90 mcg/actuation 1 puff inhalation BID 01/21/21 06/23/23 06/23/23 History aerosol inhaler ibuprofen 800 mg tablet 800 mg PO Q8H 04/25/23 06/23/23 06/23/23 History Allergies Allergy/AdvReac Type Severity Reaction Status Date / Time No Known Allergies Allergy Verified 06/23/23 09:51 [facility] Anesthesia Medical History COPD (chronic obstructive pulmonary disease) Hiatal hernia Surgical History H/O of anterior colporrhaphy 06/29/2022- anterior colporrhaphy augmented with allograft, SIS, posterior colporrhaphy and cystoscopy performed by Dr. Ewing at [facility] History of cholecystectomy 1999 History of colonoscopy (01/25/21) 2020: diverticulosis, repeat in 5 years 1997 History of esophagogastroduodenoscopy (EGD) 1997 History of tonsillectomy Family History Mother CAD (coronary artery disease) Clotting disorder Diabetes Hyperlipidemia Heart disease Colon cancer, Onset Age: 52 Father Hypertension Other Chronic kidney disease (CKD) Denies family history of Ovarian cancer Breast cancer Anesthesia complication Bleeding disorder Uterine cancer Thyroid condition Stroke Social History Smoking and tobacco status: current every day smoker Alcohol intake: never Substance/Drug Use: never Lives independently: Yes Household members: spouse Data Anesthesia Cardiac Studies: No Data to Display
[2023-06-27] VITALS (22 sets, daily range): BP systolic 97–172; BP diastolic 50–89; PULSE 66–97; RESP 16–20; TEMP 36.2–36.9; O2SAT 89–100; BMI 25.0
--- NOTE | 2023-06-27 06:57 | W.PM.OPSUD ---
Surgery/Procedure H&P Update DATE OF PROCEDURE: June 27, 2023 DATE H&P PERFORMED: 06/23/22 H&P UPDATE INFORMATION: I have reviewed H&P completed within last 30 days, I have examined patient prior to procedure and No changes to prior documentation PLANNED PROCEDURE: Operation Date: 06/27/23 07:00 Proposed Procedures p Total vaginal hysterectomy, bilateral salpingo-oophorectomy 92620, posterior coplorrhaphy 63899, sacrospinous fixation 50700,N81.4(Not Applicable) - Peter Ewing MD s Salpingo-Oophorectomy (Vaginal)(Bilateral) - Peter Ewing MD s Posterior Repair Posterior Colporrhaphy(Not Applicable) - Peter Ewing MD s Sacrospinous Ligament Suspension Sacrospinous Fixation(Not Applicable) - Peter Ewing MD
[2023-06-27] MEDS: sodium chloride 0.9% 1,000 ML 30 ML IV (07:07)
[2023-06-27] MEDS: ceFAZolin 2,000 MG in sodium chloride 0.9% (plus) 50 ML 100 MG IV (07:08)
[2023-06-27 07:10] LABS: Basophils % 0.7 %; Eosinophils # 0.2 10^3/uL (0.0-0.8); Hematocrit 43.4 % (36-47); Lymphocytes # 1.7 10^3/uL (0.8-4.8); Mean Corpuscular HGB Conc 33.4 g/dL (30-55); Mean Corpuscular Hemoglobin 31.9 pg (27-33); Mean Corpuscular Volume 95.6 fl (85-98); Mean Platelet Volume 9.6 fL (7.4-10.4); Monocytes # 0.5 10^3/uL (0.2-0.9); Monocytes % 7.8 %; Neutrophils # 3.56 10^3/uL (1.8-7.7); Neutrophils % 59.3 %; Nucleated Red Blood Cells % 0 %; Platelet Count 240 10^3/cmm (157-399); Red Blood Count 4.54 10^6/uL (3.85-5.65); Red Cell Distribution Width 13.3 % (12.1-15.1)
[2023-06-27 07:28] LABS: Alanine Aminotransferase 19 U/L (0-33); Albumin Level 4.6 g/dL (3.5-5.2); Alkaline Phosphatase 88 U/L (35-105); Anion Gap 10.8 (5-19); Aspartate Amino Transferase 21 U/L (0-32); Blood Urea Nitrogen 14 mg/dL (8-23); Calcium 8.9 mg/dL (8.5-10.5); Carbon Dioxide 26 mmol/L (22-29); Chloride 105 mmol/L (98-107); Globulin 2.5 g/dL (1.3-4.6); Glomerular Filtration Rate 158.7 mL/min (90-130); Glucose 96 mg/dL (65-115); Osmolality Calculated 286 mOsm/kg (285-295); Potassium 3.8 mmol/L (3.5-5.1); Sodium 138 mmol/L (136-145); Total Bilirubin 0.5 mg/dL (0.15-1.2); Total Protein 7.1 g/dL (6.6-8.7)
[2023-06-27] MEDS: lidocaine-epi 2% 20 mL INJ INJECTION ×2 (07:56→09:05)
[2023-06-27 08:04] LABS: Urine Appearance Clear (CLEAR); Urine Color Yellow (Yellow)
[2023-06-27 08:05] LABS: Add Urine Culture? No; Add Urine Microscopic? YES; Bacteria Urine TRACE /hpf; Bilirubin Urine Neg (Negative); Blood Urine 2+ (Negative); Glucose Urine UA Norm (Normal); Ketones Urine Negative (Negative); Leukocyte Esterase Urine Negative (Negative); Mucus Urine 1+ /hpf; Nitrate Urine Negative (Negative); Protein Urine Neg (Negative); RBC Urine 0-4 /hpf (0-2); Squamous Epithelial Cell Urine 0-4 /hpf (0-5); Urobilinogen Urine Norm (Negative); WBC Urine 0-4 /hpf (0-5); pH Urine 5 (5-7)
--- NOTE | 2023-06-27 09:09 | ANES.PAUD2 ---
Pre-Anesthetic Update Pre-Anesthetic Assessment: Date of Surgery/Procedure: 06/27/23 Proposed Procedure: Operation Date: 06/27/23 07:00 Proposed Procedures p Total vaginal hysterectomy, bilateral salpingo-oophorectomy 68434, posterior coplorrhaphy 47610, sacrospinous fixation 57764,N81.4(Not Applicable) - Peter Ewing MD s Salpingo-Oophorectomy (Vaginal)(Bilateral) - Peter Ewing MD s Posterior Repair Posterior Colporrhaphy(Not Applicable) - Peter Ewing MD s Sacrospinous Ligament Suspension Sacrospinous Fixation(Not Applicable) - Peter Ewing MD Any changes to Pre-Anesthetic Assessment?: No Last Intake: Intake Last Liquid Date 06/26/23 Last Liquid Time 21:00 Last Solid Date 06/26/23 Last Solid Time 18:30 Labs Last 48hrs: Short CBC 06/27/23 Range/Units 06:45 WBC 6.00 (3.29-11.43) 10^ 3/uL Hgb 14.50 (11.27-16.99) g/ dL Hct 43.4 (36-47) % MCV 95.6 (85-98) fl Plt Count 240 (157-399) 10^3/c mm Neut % (Auto) 59.3 % Neut # (Auto) 3.56 (1.8-7.7) 10^3/u L BMP 06/27/23 06:45 Sodium 138 Potassium 3.8 Chloride 105 Carbon Dioxide 26 BUN 14 Creatinine 0.4 L Glucose 96 Calcium 8.9 Liver Function 06/27/23 Range/Units 06:45 Total Bilirubin 0.5 (0.15-1.2) mg/dL AST 21 (0-32) U/L ALT 19 (0-33) U/L Alkaline Phosphata se 88 (35-105) U/L Albumin 4.6 (3.5-5.2) g/dL Urine 06/27/23 Range/Units 07:34 Urine Color Yellow (Yellow) Urine Appearance Clear (CLEAR) Urine pH 5 (5-7) Ur Specific Gravit y 1.020 (1.005-1.030) Urine Protein Neg (Negative) Urine Glucose (UA) Norm (Normal) Urine Ketones Negative (Negative) Urine Nitrate Negative (Negative) Urine Bilirubin Neg (Negative) Ur Leukocyte Mariah ase Negative (Negative) Urine RBC 0-4 H (0-2) /hpf Urine WBC 0-4 H (0-5) /hpf Blood Bank 06/27/23 06:45 Blood Type A Positive Rho(D) Type Positive Antibody Screen Negative Vitals: Temperature 97.6 F 06/27/23 06:31 Temperature Source Temporal Artery S can 06/27/23 06:31 Pulse Rate 74 06/27/23 06:31 Respiratory Rate 18 06/27/23 06:31 Blood Pressure 172/86 06/27/23 06:31 Blood Pressure Dee n 114 06/27/23 06:31 Pulse Oximetry 93 06/27/23 06:31 Oxygen Delivery Me thod Room Air 06/27/23 06:33 Exam: Pre-Anes Outpt Exam: alert, oriented x 3, clear to auscultation bilaterally and regular rate & rhythm Cardiac Studies: No Data to Display
--- NOTE | 2023-06-27 10:03 | PM.OP ---
Operative Report Date of procedure: June 27, 2023 Pre-op diagnosis: Uterine prolapse, rectocele stage II Post-op diagnosis: Same Procedure done: Total vaginal hysterectomy with bilateral salpingo-oophorectomy, single incision mid urethral sling, Posterior colporrhaphy and sacrospinous fixation Specimens removed/disposition: Uterus Left and right fallopian tube and ovaries Surgeon: Peter Ewing MD Estimated blood loss (mL): 200 IV fluids (mL): 1,300 Urine output (mL): 100 Complications: None Procedure: After informed consent and risks, benefits, indications and alternatives reviewed with the patient was taken to the operating room. The patient was placed in dorsal lithotomy position prepped, and draped in the usual sterile fashion. The pre-procedure timeout verifying the correct patient, procedure, site and side, could not requirements was performed and acknowledge by the OR team. A Sue catheter was placed. A Bookwalter vaginal retractor was placed into the vagina in usual manner visualize the cervix. Cervix was grasped with a single tooth tenaculum and circumferentially infiltrated with 2% lidocaine with epinephrine. Then cervix was circumferentially incised with bovie and the bladder was dissected off the pubovesical cervical fascia anteriorly with a sponge stick and Metzenbaum scissors. The anterior peritoneal reflection was identified and the anterior cul-de-sac was entered sharply with Metzenbaum scissors. The same procedure was performed posteriorly and a posterior colpotomy was made through the posterior cul-de-sac space without difficulty and the posterior blade of the Bookwalter vaginal retractor was advanced posteriorly into the cul-de-sac. At this time, the left and right uterosacral ligaments were isolated and ligated with 0 Vicryl. The LigaSure were device was placed over the uterosacral ligaments on either side and was then used in a serial fashion up through the cardinal ligaments bilaterally cross-clamped, cut, and sealed with the LigaSure device. Finally, the uterine arteries were cross-clamped, cut, sealed and ligated with the LigaSure device. Hemostasis was assured. The broad ligaments were then serially clamped, sealed and cut with the LigaSure were device on both sides. Excellent hemostasis was visualized. Both cornua were clamped, sealed and cut with the LigaSure were device. Then the pedicles were then suture ligated with excellent hemostasis. The uterus was excised and submitted for pathologic evaluation. No other abnormalities were noted in the pelvic cavity. Then the right side Infundibular ligament was identified. The ureter was confirmed along the pelvic side wall and peristalsis was noted. The LigaSure were device was then used to clamp, sealed and transcepted at middistance, again being sure to be clear of the ureter and the fallopian tube and ovary were removed. The same process was then repeated on the left side. Good hemostasis was assure on both sides. The peritoneum was then closed in a pursestring fashion with 0 Vicryl suture. The vaginal cuff angles were closed with [id number] #0 Vicryl suture on both sides and transfixed with the ipsilateral cardinal and uterosacral ligaments. The remainder of the vaginal cuff was closed with #0 Vicryl in a running locked fashion. Then proceeded to perform the single incision mid urethral sling. A vertical midline incision was made beneath the midurethra, nearly 1.5 cm length. Careful submucosal dissection was performed bilaterally up to the interior portion of the inferior pubic ramus. The insertion of adductor longus tendon on the patient?s pubic ramus was identified as reference land addy. Palpated the notch along the internal edge of ischiopubic ramus where the adductor longus tendon and the inferior pubic ramus meet. The Altis single incision sling (SIS) was selected. Then the needle of the SIS inserted aiming at the location of this notch. One of the integrated self-fixating tips place onto the needle by sliding it over the end of the needle. The needle/sling assembly was inserted toward the location of identified reference notch making sure that the flat of the handle is perpendicular to the desired path. The needle was tracked along the posterior surface of the ischiopubic ramus until the midline addy on the mesh is approximately at the midline position under the urethra. The needle was removed and the same was repeated on the contralateral side until the appropriate sling tension under the urethra was achieved ensuring that the mesh lays flat. The needle was removed and vaginal incision was closed in a running interlocking fashion with 2-0 Vicryl. Then the posterior colporrhaphy with sacrospinous fixation was performed. The posterior vaginal mucosa is opened in the routine fashion as described previously in Posterior Repair. A finger is inserted through the incision in the posterior vaginal mucosa, dissecting out the rectovaginal space (RVS). The right rectal pillar (RRP) is identified. The rectal pillar can be bluntly perforated either with the finger and with the tip of a long Laura clamp. A Vernon-Yessi retractor is used for exposing the rectovaginal space in order to enter the pararectal space with retraction of the cardinal ligament, vagina, and rectum. Displacing the rectum to the left and the cardinal ligament and ureter anteriorly. A sponge dissector is used to bluntly dissect the sacrospinous ligament removing areolar tissue. The ischial spine was palpated directly, and a area approximately 2 cm medial to the spine was selected for insertion of the Anchorsure transvaginal sacrospinous fixation system. One end of the suture of Anchoresure system inserted through the sacrospinous ligament is placed through the muscular layer of the vagina. In a similar manner, the second suture is placed. The opposite end of the suture in the sacrospinous ligament is left free and held on a small hemostat. Then traction on this suture will draw the vaginal vault directly to the ligament, where a square knot affixes it to the sacrospinous ligament. After the nabil stich is tied the second safety stich is tied. Then the colporrhaphy/vaginal repair is carried out in routine fashion.A posterior repair was performed next. An incision was made across the introitus. Metzenbaum scissors were used to tunnel beneath posterior vaginal mucosa until the apex of the rectocele bulge was reached. At this point, the rectum was from the posterior vaginal mucosa using sharp and blunt dissection, and the rectal bulge imbricated in the midline with interrupted sutures of 2-0 vicryl suture. Levator ani muscles on either side were approximated in the midline with interrupted 0 Vicryl sutures. Excess posterior vaginal mucosa was excised, and the vaginal episiotomy was repaired by approximating the posterior vaginal mucosa with a suture of Vicryl #0. At this time, instruments were removed from the vagina at hemostasis assured. Then the Sue catheter was removed and cystoscope was inserted. The bladder was filled with sterile water. Complete evaluation of the bladder mucosa was performed noting no lacerations, dimpling, tears, bleeding of the mucosa or muscular layers. Both ureteral orifices were identified. Prompt excretion of urine from both ureteral orifices was noted. Cystoscope was withdrawn. Sue catheter was then placed yielding clear ramon urine. A vaginal packing was placed and the patient was taken out of dorsal lithotomy position and awakened from the general anesthesia. The patient tolerated the procedure well and was taken to the PACU recovery room in a stable condition. Sponge, lap, needle and instruments counts were correct x3.
[2023-06-27] MEDS: ipratropium-albuterol 3 mL Neb (10:20)
[2023-06-27] MEDS: dextrose 5%-lactated ringers 1,000 ML 125 ML IV ×2 (11:50→20:07)
[2023-06-27] MEDS: HYDROcodone-acetaminophen 5-325 mg Tablet PO ×2 (14:25→20:13)
--- NOTE | 2023-06-27 14:31 | ANE.PACU2 ---
Inpatient post-anesthesia follow up: Airway intact: Yes Vital signs: Temperature 97.1 F Pulse Rate 79 Respiratory Rate 18 Blood Pressure 122/71 Pulse Oximetry 99 Oxygen Delivery Me thod Room Air Oxygen Flow Rate 3 Fraction of Inspir ed Oxygen Hydration adequate: Yes Nausea and vomiting: No Pain level: 2 Mental status: Baseline
[2023-06-27] MEDS: docusate sodium 100 mg Capsule PO (17:48)
[2023-06-27] MEDS: ketorolac 30 mg/mL INJ IVP (17:53)
--- NOTE | 2023-06-27 19:11 | PC.NURSE ---
GOT PATIENT UP TO CHAIR, LARGE AREA OF BRIGHT RED BLOOD ON BLUE PAD, PAD HAS BEEN ON SINCE PATIENT GOT TO FLOOR AT 1105.
[2023-06-27] MEDS: simethicone 80 mg Chew PO (20:13)
[2023-06-28] MEDS: ketorolac 30 mg/mL INJ IVP ×2 (01:25→05:38)
[2023-06-28] MEDS: HYDROcodone-acetaminophen 5-325 mg Tablet PO (04:15)
[2023-06-28 05:00] VITALS: BP 156/79; PULSE 60; RESP 20; TEMP 36.7; O2SAT 95
[2023-06-28] MEDS: simethicone 80 mg Chew PO (05:38)
[2023-06-28] MEDS: albuterol 2.5 mg/3 mL Neb INHALATION ×2 (05:49→07:55)
[2023-06-28 05:50] VITALS: PULSE 63; RESP 16; O2SAT 92
--- NOTE | 2023-06-28 05:51 | PC.NURSE ---
Vaginal Packing removed. Patient tolerated well.
[2023-06-28 05:55] LABS: Hematocrit 38.5 % (36-47); Mean Corpuscular HGB Conc 32.2 g/dL (30-55); Mean Corpuscular Hemoglobin 31.6 pg (27-33); Mean Corpuscular Volume 98.2 fl (85-98); Mean Platelet Volume 9.2 fL (7.4-10.4); Platelet Count 200 10^3/cmm (157-399); Red Blood Count 3.92 10^6/uL (3.85-5.65); Red Cell Distribution Width 13.4 % (12.1-15.1); White Blood Count 7.68 10^3/uL (3.29-11.43)
[2023-06-28 05:56] VITALS: PULSE 66; RESP 16; O2SAT 92
[2023-06-28 08:00] VITALS: PULSE 70; RESP 18; O2SAT 92
[2023-06-28 09:04] VITALS: BP 148/77; PULSE 59; RESP 17; TEMP 36.6; O2SAT 92
[2023-06-28] MEDS: ibuprofen 800 mg tablet PO (09:06)
--- NOTE | 2023-06-28 10:08 | PM.OBGYDC ---
Discharge Providers DAIRY AND FOOD LABORATORY ASSISTANT Date of Admission: 06/27/23 10:27 Date of Discharge: 06/28/23 Attending Provider at Admission: Peter Ewing MD Attending Provider at Discharge: Peter Ewing MD Primary Care Provider: Petre Ewing MD Reason for Visit Reason for Visit: N81.4 Hospital Course Hospital Course Mrs. Bell 68-year-old female with a history of uterine prolapse and rectocele stage II. Admitted for planned total vaginal hysterectomy with bilateral salpingo-oophorectomy, single incision mid urethral sling, posterior colporrhaphy and sacrospinous fixation. The procedures were performed without complication. Overnight observation was uneventful. She is afebrile and hemodynamically stable postoperative day 1. Tolerating diet well. Ambulating without difficulty. However PVR was elevated and she will be discharged home with a Sue catheter to continue with bladder rest until Monday when she was instructed to come to the clinic to discontinue the Sue bag catheter. She was counseled regarding pelvic rest for 6 weeks (no sex, no tampons, no vaginal douches). Return to the emergency room if any fever, increased bleeding or pain. Physical Exam Narrative: GA: Alert and oriented ?3. HEENT: WNL. Heart: Regular rate and rhythm. Lungs: Clear to auscultation bilaterally. Abdomen: Bowel sounds present, nontender [employer]AUR[employer] SERVER: spotting bleeding. Extremities: No edema, no cyanosis, no calves pain. Urinary Catheter Management: Sue: Cath Placed During This Visit: yes, but has since been removed by the nurse Reason for Continuing Indwelling Catheter: Decision to DC Catheter Urinary Catheter Date of Insertion: 06/27/23 Urinary Catheter Time of Insertion: 07:34 Date Urinary Catheter Removed: 06/28/23 Time Urinary Catheter Discontinued: 05:45 History History History 3 Term 3 0 Miscarriages/Ectopic 0 Living Children 3 Discharge Data Studies Completed and Pending Pending at discharge Category Date Time Status Pathology: Surgical [PTH] Routine Pth 06/27/23 10:03 Received Laboratory Results WBC 7.68 10^3/uL (3.29-11.43) 06/28/23 05:45 RBC 3.92 10^6/uL (3.85-5.65) 06/28/23 05:45 Hgb 12.40 g/dL (11.27-16.99) 06/28/23 05:45 Hct 38.5 % (36-47) 06/28/23 05:45 MCV 98.2 fl (85-98) H 06/28/23 05:45 MCH 31.6 pg (27-33) 06/28/23 05:45 MCHC 32.2 g/dL (30-55) 06/28/23 05:45 RDW 13.4 % (12.1-15.1) 06/28/23 05:45 Plt Count 200 10^3/cmm (157-399) 06/28/23 05:45 MPV 9.2 fL (7.4-10.4) 06/28/23 05:45 Neut % (Auto) 59.3 % 06/27/23 06:45 Lymph % (Auto) 28.0 % 06/27/23 06:45 [place] % (Auto) 7.8 % 06/27/23 06:45 Eos % (Auto) 4.0 % 06/27/23 06:45 Baso % (Auto) 0.7 % 06/27/23 06:45 Neut # (Auto) 3.56 10^3/uL (1.8-7.7) 06/27/23 06:45 Lymph # (Auto) 1.7 10^3/uL (0.8-4.8) 06/27/23 06:45 [place] # (Auto) 0.5 10^3/uL (0.2-0.9) 06/27/23 06:45 Eos # (Auto) 0.2 10^3/uL (0.0-0.8) 06/27/23 06:45 Baso # (Auto) 0.0 10^3/uL (0.0-0.1) 06/27/23 06:45 Nucleated RBC % (auto) 0 % 06/27/23 06:45 Nucleated RBCs # 0.0 /100WBC 06/27/23 06:45 Sodium 138 mmol/L (136-145) 06/27/23 06:45 Potassium 3.8 mmol/L (3.5-5.1) 06/27/23 06:45 Chloride 105 mmol/L (98-107) 06/27/23 06:45 Carbon Dioxide 26 mmol/L (22-29) 06/27/23 06:45 Anion Gap 10.8 (5-19) 06/27/23 06:45 BUN 14 mg/dL (8-23) 06/27/23 06:45 Creatinine 0.4 mg/dL (0.5-0.9) L 06/27/23 06:45 GFR Calculation 158.7 mL/min (90-130) H 06/27/23 06:45 Glucose 96 mg/dL (65-115) 06/27/23 06:45 Calculated Osmolality 286 mOsm/kg (285-295) 06/27/23 06:45 Calcium 8.9 mg/dL (8.5-10.5) 06/27/23 06:45 Total Bilirubin 0.5 mg/dL (0.15-1.2) 06/27/23 06:45 AST 21 U/L (0-32) 06/27/23 06:45 ALT 19 U/L (0-33) 06/27/23 06:45 Alkaline Phosphatase 88 U/L (35-105) 06/27/23 06:45 Total Protein 7.1 g/dL (6.6-8.7) 06/27/23 06:45 Albumin 4.6 g/dL (3.5-5.2) 06/27/23 06:45 Globulin 2.5 g/dL (1.3-4.6) 06/27/23 06:45 Urine Color Yellow (Yellow) 06/27/23 07:34 Urine Appearance Clear (CLEAR) 06/27/23 07:34 Urine pH 5 (5-7) 06/27/23 07:34 Ur Specific [place] 1.020 (1.005-1.030) 06/27/23 07:34 Urine Protein Neg (Negative) 06/27/23 07:34 Urine Glucose (UA) Norm (Normal) 06/27/23 07:34 Urine Ketones Negative (Negative) 06/27/23 07:34 Urine Blood 2+ (Negative) H 06/27/23 07:34 Urine Nitrate Negative (Negative) 06/27/23 07:34 Urine Bilirubin Neg (Negative) 06/27/23 07:34 Urine Urobilinogen Norm mg/dL (Negative) 06/27/23 07:34 Ur Leukocyte Esterase Negative (Negative) 06/27/23 07:34 Urine RBC 0-4 /hpf (0-2) H 06/27/23 07:34 Urine WBC 0-4 /hpf (0-5) H 06/27/23 07:34 Ur Squamous Epith Cells 0-4 /hpf (0-5) H 06/27/23 07:34 Amorphous Sediment Not Reportable 06/27/23 07:34 Urine Bacteria Trace /hpf (NONE) 06/27/23 07:34 Urine Mucus 1+ /hpf 06/27/23 07:34 Blood Type A Positive 06/27/23 06:45 Rho(D) Type Positive 06/27/23 06:45 Antibody Screen Negative 06/27/23 06:45 Vitals Last Vital Signs Temp 98.1 F 06/28/23 05:00 Pulse 70 06/28/23 08:00 Resp 18 06/28/23 08:00 BP 156/79 06/28/23 05:00 Pulse Ox 92 06/28/23 08:00 O2 Del Method Nasal Cannula 06/28/23 08:00 O2 Flow Rate 1 06/28/23 08:00 Discharge Plan Discharge Patient Disposition: Home Condition: Stable Prescriptions: New hydrocodone-acetaminophen 5-325 mg tablet 1 tab PO Q4H PRN (Reason: pain) Qty: 20 0RF acetaminophen 325 mg capsule 325 mg PO Q4H PRN (Reason: fever or pain) Qty: 60 0RF docusate sodium [Colace] 100 mg capsule 100 mg PO BID Qty: 60 0RF ibuprofen 800 mg tablet 800 mg PO TID PRN (Reason: pain) Qty: 60 0RF nitrofurantoin macrocrystal 100 mg capsule 100 mg PO BID 5 Days Qty: 10 0RF Rx Instructions: must administer with a meal/food Continued budesonide-formoterol [Symbicort] 80-4.5 mcg/actuation HFA aerosol inhaler 2 puff inhalation BID ibuprofen 800 mg tablet 800 mg PO Q8H albuterol sulfate 90 mcg/actuation Hfa Aerosol Inhaler 1 puff INHALATION BID Discharge Orders: Discharge Order (Routine); Ordered 06/28/23 Ordered By: Peter Ewing Referrals: Peter Ewing MD [Primary Care Provider] - 07/03/23 9:00 am (Patient two week follow up appointment with Dr. Ewing on July 07 at 1:00 PM Patient six week follow up appointment with Dr. Ewing on August 07 at 11:00 AM) Discharge Diet: Soft Mechanical Discharge Activity: Limit activity as instructed Patient Instructions: Vaginal Hysterectomy (DC), OB Discharge Report, OB Food/Drug Interaction Guide, Opioid Safety, Bladder Sling for Women (GEN), Salpingo-Oophorectomy (GEN), Hysterectomy (GEN) Activity Restrictions/Additional Instructions: 1. Please call [facility] on next working day to make your post-operative appointment in 2 weeks and Monday for Sue catheter removal. 2. Please stay home until you come back to the clinic on first post-hospatilization check up. 3. Please follow instructions on your medications CAREFULLY. 4. If you have abdominal incision, do not cover it unless dressing is necessary because of drainage. OK to shower, but avoid bath. Leave steri-strips until they fall off. If they are still on one week after surgery, you may remove them. 5. If you had vaginal surgery or vaginal repair, Dr. Ewing may instruct you to take SITZ bath. 6. Yellow, blood tinged odorous vaginal discharge is usually normal after hysterectomy or vaginal surgeries. 7. No SEXUAL INTERCOURSE, tampons, or douches until you are completely released from the post-operative care. 8. Avoid constipation by eating right and maybe using some Metamucil or Milk of Magnesia. 9. All prescription refills are given during the working hours. Please do no wait till it runs out. Call the clinic at [phone] before your medication runs out. The clinic will get in touch with your doctor to prescribe medications if necessary. 10. Please remain within 40 mile radius from our hospital because emergencies do happen now and then during the post-operative period. 11. If you have stairs at home, take one step at a time slowly and minimize the number of trips. It helps to stay in one floor for the next few days. No lifting except what you can lift by one hand until you are released from the post-operative care. 12. Driving is discouraged until you are well healed. It may be 3-4 weeks before you feel strong enough to drive. You should be able to turn and look through the rear window without pain and you should be able to push the brake pedal very hard without pain before you drive. No fast rules, but SAFETY should be your primary concern. DO NOT drive if you are on sedating medications such as narcotics. 13. Call the clinic (during working hours) to make urgent appointment or go to the Emergency room, if any of the following occurs: i. Vaginal bleeding becomes heavy, more than a period. ii. Incision becomes red and sore, or drains pus. iii. Your TEMPERATURE is over 100.4F or you have chill. iv. IV site becomes red and swollen (a little ``knot?? is usually OK) v. Persistent nausea and vomiting vi. Persistent constipation or diarrhea vii. Rash or allergic reaction to medications. Discharge Attestations DAIRY AND FOOD LABORATORY ASSISTANT Time Spent in Discharge Care*: greater than 30 min Coding Level of Care Code Acute Code for Chg Fwd Diagnoses
[2023-06-28] MEDS: ondansetron 4 MG Tablet PO (11:39)
[2023-06-28 12:45] VITALS: BP 147/78; PULSE 71; RESP 18; TEMP 36.9; O2SAT 91
== END 2023-06-28 12:58 | disposition home or self-care (01) ==
LOC: OBGYN 10:27
PROVIDERS: Admitting Provider Obstetrics & Gynecology; PCP Obstetrics & Gynecology; Visit Provider Obstetrics & Gynecology
PROC: (CPT 57250; principal; 2023-06-27 07:00)
PROC: (CPT 58720; 2023-06-27 07:00)
PROC: (CPT 57250; 2023-06-27 07:00)
PROC: (CPT 57282; 2023-06-27 07:00)
DX: N81.4 Uterovaginal prolapse, unspecified (principal); J44.9 Chronic obstructive pulmonary disease, unspecified; F17.210 Nicotine dependence, cigarettes, uncomplicated
CPT/HCPCS: 57250; 57267; 57282; 57288; 58262; 36415; 51702; 51798; 80053; 81001; 85025; 85027; 86850; 86900; 88307; 93005; 94640; C1713; G0378; J0690; J1100; J1170; J1200; J1885; J2250; J2371; J2405; J2704; J2710; J3010; J3490; J3535; J7030; J7121; J7613; Q0162

== ENCOUNTER → 2024-02-07 08:56 | Outpatient (BNVA) | payer MEDICARE, SELFPAY | PROVIDERS: PCP Obstetrics & Gynecology; Referring Provider Obstetrics & Gynecology; Visit Provider Specialist | DX: I63.9 Cerebral infarction, unspecified (principal); F17.210 Nicotine dependence, cigarettes, uncomplicated | CPT/HCPCS: 99204; 99205 ==

== ENCOUNTER 2024-03-04 14:04 | Outpatient (CLI) | payer MEDICARE, SELFPAY ==
--- NOTE | 2024-03-04 14:30 | MR_ITS ---
WS: [email or web address] MRA CAROTID WITHOUT AND WITH GADOLINIUM ENHANCEMENT TECHNIQUE: Axial 2-D TOF and gadolinium bolus images obtained with axial images and axial, sagittal, and coronal 2-D reformatted images. CLINICAL INFORMATION: I63.9 - Cerebral infarction, unspecified COMPARISON: None. FINDINGS: RIGHT: RIGHT common carotid artery is patent. No significant RIGHT ICA stenosis. RIGHT ICA is patent to the skull base. LEFT: LEFT common carotid artery is patent. No significant LEFT ICA stenosis. LEFT ICA is patent to t he skull base. Codominant and patent vertebral arteries bilaterally. Proximal basilar artery is patent. Normal [facility] aortic arch anatomy. Proximal subclavian arteries are patent. MR/MR angio neck w con* [id number] IMPRESSION: 1. No significant cervical ICA stenosis bilaterally. Both ICAs are patent to t he skull base. 2. Codominant and patent vertebral arteries bilaterally. 3. No other acute findings.
--- NOTE | 2024-03-04 14:30 | MR_ITS ---
WS: [email or web address] MRA HEAD TECHNIQUE: Axial 3-D TOF images obtained with axial images and axial, sagittal, and coronal 2-D refor matted images. CLINICAL INFORMATION: I63.9 - Cerebral infarction, unspecified FINDINGS: Distal vertebral arteries are patent. Basilar artery is patent. Normal vascularity to the TICKET DISPATCHER territo ry bilaterally. Patent RIGHT posterior communicating artery. Both ICAs are patent at the skull base. Normal vascularity to the CHRISTAL and MCA territories bilaterally . No evidence of proximal flow-limiting stenosis or aneurysm. Small LEFT A1 segment. Mild intracrania l atheromatous disease. MR/MR angio head wo con [id number] IMPRESSION: 1. No evidence of proximal flow-limiting stenosis. 2. Mild intracranial atheromatous disease. 3. No other acute findings.
[2024-03-04] MEDS: gadobenate dimeglumine 20 mL vial IV (15:45)
== END 2024-03-04 14:05 | disposition home or self-care (01) ==
LOC: RAD 14:04
PROVIDERS: PCP Obstetrics & Gynecology; Visit Provider Specialist
DX: I63.9 Cerebral infarction, unspecified (principal); I67.2 Cerebral atherosclerosis
CPT/HCPCS: 70544; 70548; A9577

== ENCOUNTER → 2024-04-09 12:00 | Outpatient (BNVA) | payer MEDICARE, SELFPAY | PROVIDERS: PCP Obstetrics & Gynecology; Visit Provider Specialist | DX: I63.9 Cerebral infarction, unspecified (principal); F17.210 Nicotine dependence, cigarettes, uncomplicated | CPT/HCPCS: 99214 ==

== ENCOUNTER → 2024-07-08 09:45 | Outpatient (BNVA) | payer MEDICARE, SELFPAY | PROVIDERS: PCP Obstetrics & Gynecology; Visit Provider Specialist | DX: I63.9 Cerebral infarction, unspecified (principal); F17.200 Nicotine dependence, unspecified, uncomplicated | CPT/HCPCS: 99214 ==

== ENCOUNTER 2025-04-15 13:30 | Outpatient (CLI) | payer MEDICARE, SELFPAY ==
--- NOTE | 2025-04-15 13:35 | CT_ITS ---
WS: [id number] LDCT LUNG CANCER SCREENING TECHNIQUE: Noncontrast CT of the chest with coronal and sagittal reformatted images. CLINICAL INFORMATION: NICOTINE DEPENDENCE, CIGARETTES COMPARISON: 2021 DLP: 58.89 mGy.cm DIvol: Mean CTDIvol: 1.10 (mGy) All CT scans at [facility] use at least one of these dose optimization techniques: automated exposure control; mA and/or kV adjustment per patient size (includes targeted exams where dose is matched to clinical indication); or iterative reconstruction. FINDINGS: Chronic emphysematous changes. Tiny micronodule LEFT lower lobe. Tiny subpleural noncalcified nodule RIGHT upper lobe anteriorly. No other suspicious pulmonary parenchymal abnormalities. Aortic calcification. Normal caliber thoracic aorta. No mediastinal or hilar lymphadenopathy. No axillary lymphadenopathy. Tiny esophageal hiatal hernia. Mild thoracic curve. CT/CT lung screening [id number] IMPRESSION: LUNG-RADS: 2-Benign Appearance or Behavior FOLLOW UP: 12 Month: Continue annual screening with LDCT
== END 2025-04-15 13:31 | disposition home or self-care (01) ==
LOC: RAD 13:31
PROVIDERS: PCP Obstetrics & Gynecology; Visit Provider Nurse Practitioner Family
DX: Z12.2 Encounter for screening for malignant neoplasm of respiratory organs (principal); F17.210 Nicotine dependence, cigarettes, uncomplicated; J43.8 Other emphysema; I70.0 Atherosclerosis of aorta
CPT/HCPCS: 71271

== ENCOUNTER → 2025-08-14 12:14 | Outpatient (BNVA) | payer MEDICARE, SELFPAY | PROVIDERS: PCP Obstetrics & Gynecology; Visit Provider Internal Medicine | DX: J44.89 Other specified chronic obstructive pulmonary disease (principal); F17.211 Nicotine dependence, cigarettes, in remission; Z99.81 Dependence on supplemental oxygen; Z99.89 Dependence on other enabling machines and devices; J44.9 Chronic obstructive pulmonary disease, unspecified; R05.3 Chronic cough; M41.9 Scoliosis, unspecified | CPT/HCPCS: 71046; 99204; Q3014 ==

== ENCOUNTER → 2025-09-29 09:59 | Outpatient (BNVA) | payer MEDICARE, MEDICAID, SELFPAY | PROVIDERS: PCP Obstetrics & Gynecology; Visit Provider Dermatology | DX: L82.1 Other seborrheic keratosis (principal); D22.39 Melanocytic nevi of other parts of face; D23.39 Other benign neoplasm of skin of other parts of face; S01.81XA Laceration without foreign body of other part of head, initial encounter; L82.0 Inflamed seborrheic keratosis; X58.XXXA Exposure to other specified factors, initial encounter | CPT/HCPCS: 11102; 17000; 17110; 99203 ==